=== PATIENT | female | born 1950 | race Caucasian/White ===

== ENCOUNTER 2017-01-22 19:28 | Observation (INO) | payer OTHER ==
--- NOTE | 2017-01-22 19:41 | CPEKG ---
Heart Rate: 98 RR Interval: 612 P-R Interval: 160 QRSD Interval: 100 QT Interval: 408 QTC Interval: 522 P [place]: 60 QRS [place]: -62 T Wave [place]: 95 EKG Severity - ABNORMAL ECG - EKG Impression: SINUS RHYTHM EKG Impression: LEFT ATRIAL ABNORMALITY EKG Impression: LEFT ANTERIOR FASCICULAR BLOCK EKG Impression: CONSIDER RIGHT VENTRICULAR HYPERTROPHY EKG Impression: LEFT VENTRICULAR HYPERTROPHY EKG Impression: ABNORMAL T, CONSIDER ISCHEMIA, ANT-LAT LEADS EKG Impression: PROLONGED QT INTERVAL Electronically Signed By: Kecia Amato 22-Jan-2017 22:38:22
--- NOTE | 2017-01-22 19:42 | EDPHY ---
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 She presents today with chest pressure starting at 7:00 p.m.. She took 2 adult aspirin at home. She states her symptoms have now resolved. She denies shortness of breath, nausea, vomiting or diaphoresis. She had an episode of chest pressure yesterday as well. She has not seen Dr. Cobb for some time. She denies any leg pain or swelling. REVIEW OF SYSTEMS: My complete review of systems is negative except as mentioned in the HPI. 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 She does not smoke. Smoking Status: Never smoked Physical Exam: Vitals noted GENERAL: Well-appearing, in no acute distress, alert. HEENT: Eyes normal to inspection, normal pharynx, no signs of dehydration. NECK: No thyromegaly, no lymphadenopathy, supple. RESPIRATORY: Clear to auscultation bilaterally, no rales, rhonchi or wheezing. CVS: Regular rate and rhythm. No rubs, or gallops. ABDOMEN: Soft, nontender, nondistended, no organomegaly. BACK: Normal to inspection, no CVA tenderness. SKIN: Normal color, no rash, warm, dry. No pallor. EXTREMITIES: No pedal edema, no calf tenderness, no Homans sign or cords, no joint swelling. NEURO/PSYCH: Alert and oriented, normal mood and affect, normal motor sensory exam. Constitutional: Initial Vital Signs Temperature (C) 37.8 C 01/22/17 19:36 Heart Rate 93 01/22/17 19:36 Respiratory Rate 16 01/22/17 19:36 Blood Pressure 133/77 H 01/22/17 19:36 O2 Sat (%) 90 L 01/22/17 19:36 O2 Delivery Mode Room Air O2 (L/minute) 2 Allergies/Adverse Reactions: Opioids - Morphine Analogues Allergy (Verified 01/22/17 19:35) GENERIC PROZAC Allergy (Severe, Uncoded 07/16/10 08:55) SYNCOPE Home Medications: Medication Instructions Recorded Depakote 07/16/10 PROzac 07/16/10 Atorvastatin Calcium [Lipitor] 0 mg PO DAILY 12/01/11 Calcium Carbonate [Antacid] 0 mg PO 12/01/11 Medical Decision Making - Diagnostics Imaging Results: Imaging Impressions Chest X-Ray 01/22/17 19:53 Impression: The chest is negative for acute cardiopulmonary abnormality. ED Course/Re-evaluation: In the emergency department I met EMS on arrival. I took report from the hobbing machine operator. She reported ST elevation inferiorly. An EKG, laboratory studies, and chest x-ray were ordered. EKG: Sinus rhythm at 98. Left atrial abnormality. Left anterior fascicular block. Right ventricular hypertrophy. Left ventricular hypertrophy. Patient has flipped T-waves in V1 through V3. No ST elevation. This compared the previous EKG from 02/25/2014. It is noted that there is a flipped T-wave in V3 today and there was no flipped T-wave in V3 previously. 1950: Dr. Isai Taylor was in the emergency department evaluating the patient. 2039: I discussed case with Dr. Taylor. He will admit the patient for observation. Patient is aware the plan. Differential Diagnosis: My differential includes but is not limited to ACS, acute PA, dissection, aneurysm, pulmonary embolus, pneumonia, pneumothorax, reflux, GERD - Data Points Laboratory Results: Laboratory Results 01/22/17 19:30 01/22/17 19:30 01/22/17 01/22/17 01/22/17 19:30 19:30 19:30 WBC 9.39 10^3/uL 10^3/uL (3.80-9.50) RBC 4.50 10^6/uL 10^6/uL (4.18-5.33) Hgb 14.8 g/dL g/dL (12.6-16.3) Hct 44.0 % % (38.0-47.0) MCV 97.8 fL fL (81.5-99.8) MCH 32.9 pg pg (27.9-34.1) MCHC 33.6 g/dL g/dL (32.4-36.7) RDW 12.8 % % (11.5-15.2) Plt Count 197 10^3/uL 10^3/uL (150-400) MPV 11.5 fL fL (8.7-11.7) Neut % (Auto) 53.3 % % (39.3-74.2) Lymph % (Auto) 35.9 % % (15.0-45.0) [place] % (Auto) 7.3 % % (4.5-13.0) Eos % (Auto) 2.0 % % (0.6-7.6) Baso % (Auto) 0.9 % % (0.3-1.7) Nucleat RBC Rel Count 0.0 % % (0.0-0.2) Absolute Neuts (auto) 5.00 10^3/uL 10^3/uL (1.70-6.50) Absolute Lymphs (auto) 3.37 10^3/uL H 10^3/uL (1.00-3.00) Absolute Monos (auto) 0.69 10^3/uL 10^3/uL (0.30-0.80) Absolute Eos (auto) 0.19 10^3/uL 10^3/uL (0.03-0.40) Absolute Basos (auto) 0.08 10^3/uL 10^3/uL (0.02-0.10) Absolute Nucleated RBC 0.00 10^3/uL 10^3/uL (0-0.01) Immature Gran % 0.6 % % (0.0-1.1) Immature Gran # 0.06 10^3/uL 10^3/uL (0.00-0.10) PT 12.1 SEC SEC (12.0-15.0) INR 0.91 (0.83-1.16) APTT 29.3 SEC SEC (23.0-38.0) Sodium 141 mEq/L mEq/L (134-144) Potassium 4.1 mEq/L mEq/L (3.5-5.2) Chloride 104 mEq/L mEq/L (97-110) Carbon Dioxide 23 mEq/l mEq/l (22-31) Anion Gap 14 mEq/L mEq/L (8-16) BUN 10 mg/dL mg/dL (7-23) Creatinine 0.7 mg/dL mg/dL (0.6-1.0) Estimated GFR > 60 Glucose 115 mg/dL H mg/dL (70-100) Calcium 9.4 mg/dL mg/dL (8.5-10.4) Total Bilirubin 0.5 mg/dL mg/dL (0.1-1.4) Conjugated Bilirubin 0.4 mg/dL mg/dL (0.0-0.5) Unconjugated Bilirubin 0.1 mg/dL mg/dL (0.0-1.1) AST 98 IU/L H IU/L (14-46) ALT 101 IU/L H IU/L (9-52) Alkaline Phosphatase 122 IU/L IU/L (38-126) Troponin I 0.018 ng/mL ng/mL (0-0.034) NT-Pro-B Natriuret Pep 672 pg/mL H pg/mL (0-125) Total Protein 7.4 g/dL g/dL (6.3-8.2) Albumin 4.2 g/dL g/dL (3.5-5.0) Lipase 188.0 IU/L IU/L (23-300) Departure - Departure Disposition: [facility] Inpatient Acute Clinical Impression: Chest pain Qualifiers: Chest pain type: other chest pain Qualified Code(s): R07.89 - Other chest pain Condition: Good
[2017-01-22] MEDS ORDERED: IOPAMIDOL (ISOVUE-370) 150 ML BTL IV ONE (19:45)
[2017-01-22] MEDS ORDERED: LIDOCAINE 1% 30 ML SDV ONE ×2 (19:45→20:03)
[2017-01-22] MEDS ORDERED: fentaNYL 100 MCG/2 ML INJ ONE (19:45)
[2017-01-22] MEDS ORDERED: MIDAZOLAM 2 MG/2 ML VIAL ONE (19:45)
[2017-01-22 19:51] LABS: % IMMATURE GRANULYOCYTES 0.6 % (0.0-1.1); ABSOLUTE IMMATURE GRANULOCYTES 0.06 10^3/uL (0.00-0.10); ADD DIFF? NO; ADD MORPH? NO; ADD SCAN? NO; ATYPICAL LYMPHOCYTE FLAG 0 (0-99); FRAGMENT RBC FLAG 0 (0-99); HEMOGLOBIN 14.8 g/dL (12.6-16.3); LEFT SHIFT FLG 0 (0-99); LIPEMIA HEMOLYSIS FLAG 80 (0-99); MEAN CELL HEMOGLOBIN 32.9 pg (27.9-34.1); MEAN CELL HEMOGLOBIN CONCENTR. 33.6 g/dL (32.4-36.7); MEAN CELL VOLUME 97.8 fL (81.5-99.8); MEAN PLATELET VOLUME 11.5 fL (8.7-11.7); PLATELET CLUMPS FLAG 0 (0-99); PLATELET COUNT 197 10^3/uL (150-400); RED CELL DISTRIBUTION WIDTH 12.8 % (11.5-15.2)
[2017-01-22 19:56] LABS: INR 0.91 (0.83-1.16); PROTIME(PATIENT) 12.1 SEC (12.0-15.0)
[2017-01-22 19:57] LABS: APTT 29.3 SEC (23.0-38.0)
[2017-01-22 20:08] LABS: ALANINE AMINOTRANSFERASE 101 IU/L (9-52); ALBUMIN 4.2 g/dL (3.5-5.0); ALKALINE PHOSPHATASE 122 IU/L (38-126); ANION GAP 14 mEq/L (8-16); ASPARTATE AMINOTRANSFERASE 98 IU/L (14-46); BILIRUBIN,TOTAL 0.5 mg/dL (0.1-1.4); BILIRUBIN-CONJUGATED 0.4 mg/dL (0.0-0.5); BILIRUBIN-UNCONJUGATED 0.1 mg/dL (0.0-1.1); CALCIUM 9.4 mg/dL (8.5-10.4); CARBON DIOXIDE 23 mEq/l (22-31); CHLORIDE 104 mEq/L (97-110); CREATININE 0.7 mg/dL (0.6-1.0); GLOMERULAR FILTRATION RATE > 60; GLUCOSE 115 mg/dL (70-100); POTASSIUM 4.1 mEq/L (3.5-5.2); SODIUM 141 mEq/L (134-144); TOTAL PROTEIN 7.4 g/dL (6.3-8.2)
[2017-01-22 20:19] LABS: TROPONIN I 0.018 ng/mL (0-0.034)
--- NOTE | 2017-01-22 20:29 | PDCONSULT ---
Developmental Services Worker Note: Chief complaint: Chest pain History of present illness: Ms Garcia is a 66-year-old female with known dual chamber right ventricle admitted with a 2 day history of intermittent substernal chest pressure associated with dizziness. Patient had a extensive cardiac workup in 2006 including a transesophageal echocardiogram as well as a cardiac catheterization. Those reports are not available. She does not recall having been told that she has coronary artery disease. Risk factors include hyperlipidemia. Patient has had a very stressful week related to the opening of a play. Patient also was having discussions with her daughter. Yesterday she experienced the onset of substernal chest pressure. It was associated with dizziness. It did not radiate to the jaw or arm. Was not associated nausea vomiting or diaphoresis. The symptoms resolved. They occurred again today. She activated 911 and was brought to the emergency department. Cardiac alert was initiated. On my arrival to the ER patient is currently pain-free. Cardiac risk includes hyperlipidemia. Past cardiac history includes ventricular septal defect and dual right ventricular chamber. Past medical history includes hypothyroidism, depression. Allergies GENERIC PROZAC Allergy (Severe, Uncoded 07/16/10 08:55) SYNCOPE Opioids - Morphine Analogues Allergy (Verified 01/22/17 19:35) Ambulatory Orders Depakote 07/16/10 PROzac 07/16/10 Atorvastatin Calcium [Lipitor 10 mg (*)] 0 mg PO DAILY 12/01/11 Calcium Carbonate [Antacid] 0 mg PO 12/01/11 Past surgical history: Unremarkable. Social history: She is a nonsmoker. She does report drink alcohol regularly. She is accompanied by her who I know well and her daughter. Family history: Negative for premature coronary artery disease. Review of System: HEENT: Patient is free of sore throat. She has had no headache. She has had no change in vision. Neck: Patient has had no sore throat. Chest: Patient is free of shortness of breath, wheezing. Cardiac: Patient is free of exertional shortness of breath, PND, orthopnea, palpitations, syncope, near syncope. GI: Patient is free of nausea vomiting. She has had no abdominal pain diarrhea or constipation. : Patient is free of dysuria/nocturia. Skin: Patient is free of rash. Neuro: Patient is had some dizziness. She does not describe vertigo. She has had no change in sensation or motor function or gait. Physical examination Selected Entries 01/22/17 19:36 Heart Rate 93 Respiratory 16 Rate O2 Sat (%) 90 L Temperature (C) 37.8 C Blood Pressure 133/77 H Mean Arterial 95 Pressure (MAP) well-nourished well-developed female resting flat in bed. Conjunctivae all injection is noted without scleral icterus. Cataract repair is seen in the left eye. Oropharynx is clear without exudate. Neck is supple without masses. There is no thyromegaly. There are no carotid bruits. Chest is clear to auscultation percussion. Cardiac examination is notable for no RV lift. There is a regular rate and rhythm with a 3/6 systolic murmur along the left sternal border. Apical impulse is in the normal position. Abdomen Is soft nontender with good bowel sounds. There is no organomegaly. There is no suprapubic tenderness. Radial pulses are +2 and equal, femoral pulses are +2 and equal, dorsalis pedis pulses are +2 and equal Skin reveals no rash. Neurologically she is alert and oriented with no mood and affect. She is moving extremities well sensation grossly intact. Speech is normal. Face is symmetric. Data: Echocardiogram from 2009 revealed normal LV systolic function with a ventricular septal defect. Dual right ventricular cavity was noted. Coronary angiogram and DULCE from 2006 are not available. EKG today shows left axis deviation with sinus rhythm and evidence of right ventricular hypertrophy. Is unchanged from prior EKG. Laboratory Tests 01/22/17 01/22/17 01/22/17 19:30 19:30 19:30 WBC 9.39 RBC 4.50 Hgb 14.8 Hct 44.0 MCV 97.8 MCH 32.9 MCHC 33.6 RDW 12.8 Plt Count 197 PT 12.1 INR 0.91 APTT 29.3 Sodium 141 Potassium 4.1 Chloride 104 Carbon Dioxide 23 Anion Gap 14 BUN 10 Creatinine 0.7 Glucose 115 H Calcium 9.4 Total Bilirubin 0.5 Conjugated Bilirubin 0.4 Unconjugated Bilirubin 0.1 AST 98 H ALT 101 H Alkaline Phosphatase 122 Troponin I 0.018 NT-Pro-B Natriuret Pep 672 H Total Protein 7.4 Albumin 4.2 Lipase 188.0 Impression: 66-year-old female admitted with atypical chest pain. Initial troponin is negative for acute ischemia. EKG does not show acute injury pattern. Clinical history is more consistent with GI etiology with pressure. Dizziness is of uncertain etiology. Patient had a similar response to a change in her Depakote and Prozac dosages in the past and this may be responsible today. Patient does have a mild elevation in liver function tests of uncertain etiology. We will plan to admitted to the hospital to rule out for myocardial infarction. Plan for an echocardiogram to reassess right ventricular function in the setting of ventricular septal defect. We will repeat liver function tests in the morning. This may represent drug toxicity. At the present time she is clinically stable without indications to go to the cardiac catheterization lab. Will review her angiogram from 2006 and consider risk stratification if need be. Will addressed patient's recent increase in stress / anxiety. Questions were answered with the patient and her family. We will follow her serially overnight.
--- NOTE | 2017-01-22 20:50 | CPEKG ---
Heart Rate: 91 RR Interval: 659 P-R Interval: 156 QRSD Interval: 98 QT Interval: 428 QTC Interval: 527 P [place]: 59 QRS [place]: -63 T Wave [place]: 90 EKG Severity - ABNORMAL ECG - EKG Impression: SINUS RHYTHM EKG Impression: PROBABLE LEFT ATRIAL ABNORMALITY EKG Impression: LEFT ANTERIOR FASCICULAR BLOCK EKG Impression: LATERAL INFARCT, AGE INDETERMINATE EKG Impression: PROLONGED QT INTERVAL Electronically Signed By: Kecia Amato 22-Jan-2017 22:38:22
[2017-01-22 21:28] LABS: CREATINE KINASE-MB FRACTION 1.87 ng/mL (0-3.19); TROPONIN I 0.021 ng/mL (0-0.034)
[2017-01-23 00:18] LABS: CREATINE KINASE-MB FRACTION 1.75 ng/mL (0-3.19); TROPONIN I 0.022 ng/mL (0-0.034)
[2017-01-23 02:47] LABS: CREATINE KINASE-MB FRACTION 1.28 ng/mL (0-3.19); TROPONIN I 0.025 ng/mL (0-0.034)
[2017-01-23 06:11] LABS: % IMMATURE GRANULYOCYTES 0.5 % (0.0-1.1); ABSOLUTE IMMATURE GRANULOCYTES 0.03 10^3/uL (0.00-0.10); ADD DIFF? NO; ADD MORPH? NO; ADD SCAN? NO; ATYPICAL LYMPHOCYTE FLAG 0 (0-99); FRAGMENT RBC FLAG 0 (0-99); HEMATOCRIT 39.7 % (38.0-47.0); HEMOGLOBIN 13.3 g/dL (12.6-16.3); LEFT SHIFT FLG 0 (0-99); LIPEMIA HEMOLYSIS FLAG 80 (0-99); MEAN CELL HEMOGLOBIN 32.7 pg (27.9-34.1); MEAN CELL HEMOGLOBIN CONCENTR. 33.5 g/dL (32.4-36.7); MEAN CELL VOLUME 97.5 fL (81.5-99.8); MEAN PLATELET VOLUME 10.9 fL (8.7-11.7); PLATELET CLUMPS FLAG 10 (0-99); PLATELET COUNT 151 10^3/uL (150-400); RED BLOOD CELL COUNT 4.07 10^6/uL (4.18-5.33); RED CELL DISTRIBUTION WIDTH 12.9 % (11.5-15.2)
[2017-01-23 06:37] LABS: ALANINE AMINOTRANSFERASE 84 IU/L (9-52); ALBUMIN 3.6 g/dL (3.5-5.0); ALKALINE PHOSPHATASE 83 IU/L (38-126); ANION GAP 9 mEq/L (8-16); ASPARTATE AMINOTRANSFERASE 74 IU/L (14-46); BILIRUBIN,TOTAL 0.5 mg/dL (0.1-1.4); BILIRUBIN-CONJUGATED 0.3 mg/dL (0.0-0.5); BILIRUBIN-UNCONJUGATED 0.2 mg/dL (0.0-1.1); CALCIUM 8.6 mg/dL (8.5-10.4); CARBON DIOXIDE 24 mEq/l (22-31); CHLORIDE 110 mEq/L (97-110); CHOLESTEROL 173 mg/dL (140-220); CHOLESTEROL/HDL RATIO 2.31 RATIO (1.00-4.44); CREATININE 0.6 mg/dL (0.6-1.0); GLOMERULAR FILTRATION RATE > 60; GLUCOSE 76 mg/dL (70-100); HIGH DENSITY LIPOPROTEIN 75 mg/dL (40-85); LDL/HDL RATIO 1.03 RATIO (1.00-3.22); LOW DENSITY LIPOPROTEIN 77 mg/dL (80-100); NON-HIGH DENSITY LIPOPROTEIN 98 mg/dL (90-129); POTASSIUM 4.2 mEq/L (3.5-5.2); SODIUM 143 mEq/L (134-144); TOTAL PROTEIN 6.4 g/dL (6.3-8.2); TRIGLYCERIDE 107 mg/dL (35-135); VERY LOW DENSITY LIPOPROTEINS 21 mg/dL (8-25)
[2017-01-23 06:49] LABS: CREATINE KINASE-MB FRACTION 1.44 ng/mL (0-3.19); TROPONIN I 0.022 ng/mL (0-0.034)
--- NOTE | 2017-01-23 08:57 | GDS ---
[f rep st] DISCHARGE SUMMARY ADMISSION DIAGNOSIS: Atypical chest pain. DISCHARGE DIAGNOSES: 1. Atypical chest pain, query medicine reaction. 2. Dual-chamber right ventricle. 3. Hypothyroidism. DISCHARGE MEDICATIONS: Per attached reconciliation sheet. FOLLOWUP: 1. Follow up with Dr. Rafaela Rosas, primary care, in 1 week for followup on liver function tests and dosage of Prozac and Depakote. 2. Follow up with Dr. Suhail Cobb, cardiology, for progression of infundibular stenosis. PROCEDURES DONE DURING THIS HOSPITALIZATION: Echocardiogram. HOSPITAL COURSE: The patient is a 66-year-old female who was admitted to the hospital with 2 episod es of atypical chest pain associated with dizziness. Patient was ruled out for myocardial infarctio n by serial enzymes. Her brain natriuretic peptide was mildly elevated. An echocardiogram shows pr ogression of septal hypertrophy with suggestion of infundibular stenosis. Her liver function tests were also noted to be elevated. These decreased by the 1st hospital day. The patient had a recent increased and change in dose of Depakote and Prozac. She had a similar reaction with discomfort and dizziness related to fillers related to these medications. On the day of discharge, she was up amb ulating without limitations. PHYSICAL EXAMINATION: VITAL SIGNS: Blood pressure of 106/68 and her heart rate is 72. Her oxygen saturation is 93 with a rate of 18. She is saturating well on room air. Temperature is 36.6. NECK : She has no JVP at 90 degrees. CHEST: Clear. CARDIAC: Continues to reveal a 3/6 systolic murmu r along the sternal border. ABDOMEN: Soft. There is no hepatomegaly. EXTREMITIES: Free of edema . LABORATORY DATA: Today, a white count of 6.12. Her hemoglobin is 13.3 with a hematocrit of 39.7. Her serum sodium is 143 with a potassium of 4.2. Her creatinine is 0.6. Her AST on admission was 9 8, today it is 74. ALT was 101, today it is 84. Her troponins are flat at 0.021. Her CPK MB is ne gative. Her LDL cholesterol is 77. Her TSH is normal at 3.26. Her lipase is 188. IMPRESSION: 1. Atypical chest discomfort associated with dizziness, query medicine side effect. 2. Double-chamber right ventricle associated with ventricular septal defect and infundibular narrow ing. 3. Hypothyroidism, adequately replaced. 4. Elevated liver function tests, query medication-related. Improving. RECOMMENDATIONS: Clinical followup for her elevated liver function tests and dosing of Depakote and Prozac. We will have her follow up with cardiology, Dr. Cobb, with consideration for a VO2 Max t readmill to determine limitations with consideration for a cardiac MR at some point to delineate the anatomy and consider her for further evaluation/intervention if necessary. At the present time, dustin sue is clinically stable. There is no evidence of an acute coronary syndrome. She had a normal coron benedict angiography in 2006, which I reviewed. Questions were answered. She is discharged home in stab le condition. Followup as outlined above. /[id number]/MODL
[2017-01-23] MEDS ORDERED: ASPIRIN 81 MG CHEWABLE TAB PO SCH (09:00)
[2017-01-23 09:07] VITALS: BP 133/75; PULSE 77; RESP 16; TEMP 98.4; O2SAT 94
--- NOTE | 2017-01-23 09:36 | ECHO ---
[id number] + + [id number] : : [place] [address] : : [phone] + + Adult Echocardiographic Report + ----+ :Name: ROBERTO PULIDO GIOVANNYkaveh Date: 01/23/2017 07:58 AM BP: 106/68 mmHg : : Hospital Admission Number: [id number] Location: 208: :: 1950 Gender: Female Height: 61 in : :Age: 66 yrs Race: WH Weight: 128 lb : :Reason For Study: ancelmo pain : : BSA: 1.6 meters2 : :History: double right ventricular chamber and VSD : + ----+ MMode/2D Measurements \T\ Calculations IVSd: 1.8 cm LVIDd: 3.7 cm FS: 35.3 % Ao root diam: LVPWd: 0.59 cm LVIDs: 2.4 cm EDV(Teich): 2.8 cm 56.5 ml LA dimension: ESV(Teich): 3.3 cm 19.4 ml EF(Teich): 65.6 % LVLd ap4: 6.6 cm SV(MOD-sp4): EDV(MOD-sp4): 49.0 ml 71.0 ml LVLs ap4: 5.8 cm ESV(MOD-sp4): 22.0 ml EF(MOD-sp4): 69.0 % Normal Measurement Values: + + :LVIDd (3.5-5.7cm) IVSd (0.6-1.1cm) LVPWd (0.6-1.1cm) Aortic Root (2.0-3.7cm)Left Atrium (1.5-4.0cm): :LV Vol(d) (76-115ml) LV Vol(s) (29-48ml) Ejec Fraction (50-65%)PV Marco (0.6- 1.2m/s) TV Marco (0.4-1.0m/s) : :MV E Marco (0.8-1.0m/s)MV A Marco (0.3-1.0m/s)LVOT Marco (0.7-1.2m/s) Asc Ao Marco ( 0.9-1.8m/s) : + + Doppler Measurements \T\ Calculations MV E max marco: Ao V2 max: LV V1 max: PA V2 max: 60.9 cm/sec 115.1 cm/sec 85.3 cm/sec 97.7 cm/sec MV A max marco: Ao max P.3 mmHg LV V1 max PG: PA max P.8 cm/sec 2.9 mmHg 3.8 mmHg MV E/A: 1.2 MV dec time: 0.17 sec Left Ventricle The left ventricle is normal in size and function. Questionable VSD. Severe thickening of the interventricular septum with no left ventricular outflow tract obstruction. Ejection Fraction = 65%. No regional wall motion abnormalities noted. Right Ventricle It is difficult to distinguish between infundibular sub-pulmonic stenosis and double right ventricular chamber. There is a narrowing in what appears to be the right ventricular outflow tract; this infundibular narrowing may be dividing the RV into two chambers or may just be a narrowing. The gradient across this muscular narrowing is 47mmHg. The right ventricle is normal size. There is mild right ventricular hypertrophy. The right ventricular systolic function is normal. Atria The left atrial size is normal. Right atrial size is normal. Mitral Valve There is borderline mitral valve prolapse. There is no mitral valve stenosis. There is mild mitral regurgitation. Tricuspid Valve The tricuspid valve is normal in structure and function. There is no tricuspid stenosis. No tricuspid regurgitation. Aortic Valve The aortic valve is not well visualized. There is no aortic stenosis. There is no aortic insufficiency. Pulmonic Valve The pulmonic valve is not well visualized. Great Vessels The aortic root is normal size. Pericardium/Pleural trivial pericardial effusion. Conclusion A two-dimensional transthoracic echocardiogram with M-mode and Doppler was performed. The left ventricle is normal in size and function. Ejection Fraction = 65%. Severe thickening of the interventricular septum with no left ventricular outflow tract obstruction. Subpulmonic infundibular stenosis. with gradient of 47mmHg. There is borderline mitral valve prolapse. There is mild mitral regurgitation. The aortic valve is not well visualized. trivial pericardial effusion. Final Reading Physician: Hollie Jacinto signed on 01/23/2017 09:35 AM Ordering Physician: NORMA SIMON Performed By: Augustina Montemayor
[2017-01-23 10:08] LABS: HEMOGLOBIN A1C 5.6 % (4.0-6.0)
== END 2017-01-23 09:54 | disposition home or self-care (01) ==
LOC: EDUNIT# → F2W 21:10
PROVIDERS: ADMIT Internal Medicine Interventional Cardiology; ATTEND Internal Medicine Interventional Cardiology
DX: R07.89 Other chest pain (principal); R42 Dizziness and giddiness; E03.9 Hypothyroidism, unspecified; I10 Essential (primary) hypertension; Q24.8 Other specified congenital malformations of heart
CPT/HCPCS: 71010; 93005; 93306; G0378; J1644; J2250; J3010; Q9967

== ENCOUNTER → 2017-01-31 | Outpatient (CLI) | payer OTHER | LOC: BHFA 11:30 | PROVIDERS: ATTEND Internal Medicine Cardiovascular Disease | DX: Q21.0 Ventricular septal defect (principal); I51.7 Cardiomegaly; E78.5 Hyperlipidemia, unspecified ==

== ENCOUNTER 2017-03-13 08:48 | Day surgery (SDC) | payer OTHER ==
[2017-03-13] MEDS ORDERED: fentaNYL 100 MCG/2 ML INJ IVP ONE ×2 (08:54→09:06)
[2017-03-13] MEDS ORDERED: BENZOCAINE UNIT DOSE SPRAY HURRICAINE MM ONE (08:54)
[2017-03-13] MEDS ORDERED: MIDAZOLAM 2 MG/2 ML VIAL IVP ONE ×2 (08:54→09:06)
[2017-03-13] MEDS ORDERED: NS 500 ML IV ONE (08:54)
[2017-03-13] MEDS ORDERED: ETOMIDATE 20 MG/10 ML VIAL IVP ONE (08:54)
[2017-03-13] MEDS ORDERED: PROPOFOL 200 MG/20 ML VIAL IVP ONE (08:54)
[2017-03-13] MEDS ORDERED: NS 1,000 ML IV ONE ×2 (09:06→09:16)
[2017-03-13] MEDS ORDERED: diphenhydrAMINE 25 MG CAP PO ONE (09:16)
[2017-03-13] MEDS ORDERED: FAMOTIDINE 20 MG TAB PO ONE (09:16)
[2017-03-13] MEDS ORDERED: ASPIRIN EC 325 MG TAB PO ONE (09:16)
[2017-03-13] MEDS ORDERED: DIAZEPAM 5 MG TAB PO ONE (09:16)
--- NOTE | 2017-03-13 09:23 | CPEKG ---
Heart Rate: 79 RR Interval: 759 P-R Interval: 152 QRSD Interval: 98 QT Interval: 452 QTC Interval: 519 P [place]: 65 QRS [place]: -53 T Wave [place]: 93 EKG Severity - ABNORMAL ECG - EKG Impression: SINUS RHYTHM EKG Impression: LEFT ANTERIOR FASCICULAR BLOCK EKG Impression: CONSIDER RIGHT VENTRICULAR HYPERTROPHY EKG Impression: LEFT VENTRICULAR HYPERTROPHY EKG Impression: ABNORMAL T, CONSIDER ISCHEMIA, ANT-LAT LEADS EKG Impression: PROLONGED QT INTERVAL EKG Impression: No considerable change from EKG 01/22/2017 Electronically Signed By: Isai Taylor 13-Mar-2017 10:34:23
[2017-03-13 09:36] LABS: % IMMATURE GRANULYOCYTES 0.5 % (0.0-1.1); ABSOLUTE IMMATURE GRANULOCYTES 0.03 10^3/uL (0.00-0.10); ADD DIFF? NO; ADD MORPH? NO; ADD SCAN? NO; ATYPICAL LYMPHOCYTE FLAG 10 (0-99); FRAGMENT RBC FLAG 0 (0-99); HEMATOCRIT 40.8 % (38.0-47.0); HEMOGLOBIN 13.8 g/dL (12.6-16.3); LEFT SHIFT FLG 0 (0-99); LIPEMIA HEMOLYSIS FLAG 90 (0-99); MEAN CELL HEMOGLOBIN 33.2 pg (27.9-34.1); MEAN CELL HEMOGLOBIN CONCENTR. 33.8 g/dL (32.4-36.7); MEAN CELL VOLUME 98.1 fL (81.5-99.8); MEAN PLATELET VOLUME 11.3 fL (8.7-11.7); PLATELET CLUMPS FLAG 0 (0-99); PLATELET COUNT 182 10^3/uL (150-400); RED BLOOD CELL COUNT 4.16 10^6/uL (4.18-5.33); RED CELL DISTRIBUTION WIDTH 12.8 % (11.5-15.2)
[2017-03-13 09:37] LABS: INR 0.97 (0.83-1.16); PROTIME(PATIENT) 12.8 SEC (12.0-15.0)
[2017-03-13] MEDS ORDERED: ATROPINE SULFATE 1 MG/10 ML SYR ONE (09:40)
[2017-03-13 09:48] LABS: ANION GAP 12 mEq/L (8-16); CARBON DIOXIDE 21 mEq/l (22-31); CHLORIDE 107 mEq/L (97-110); CHOLESTEROL 188 mg/dL (140-220); CHOLESTEROL/HDL RATIO 2.04 RATIO (1.00-4.44); CREATININE 0.6 mg/dL (0.6-1.0); GLOMERULAR FILTRATION RATE > 60; GLUCOSE 72 mg/dL (70-100); HIGH DENSITY LIPOPROTEIN 92 mg/dL (40-85); LOW DENSITY LIPOPROTEIN 74 mg/dL (80-100); NON-HIGH DENSITY LIPOPROTEIN 96 mg/dL (90-129); POTASSIUM 4.5 mEq/L (3.5-5.2); SODIUM 140 mEq/L (134-144); TRIGLYCERIDE 113 mg/dL (35-135); VERY LOW DENSITY LIPOPROTEINS 22 mg/dL (8-25)
[2017-03-13] MEDS ORDERED: ETOMIDATE 40 MG/20 ML INJ ONE (10:00)
[2017-03-13] MEDS ORDERED: fentaNYL 100 MCG/2 ML INJ ONE (10:35)
[2017-03-13] MEDS ORDERED: LIDOCAINE 1% 300 MG/30 ML SDV ONE (10:35)
[2017-03-13] MEDS ORDERED: MIDAZOLAM 2 MG/2 ML VIAL ONE (10:36)
[2017-03-13] MEDS ORDERED: IOPAMIDOL (ISOVUE-370) 150 ML BTL IV ONE (10:36)
--- NOTE | 2017-03-13 11:34 | PDDXCAT ---
Diagnostic Cath Note - . Date: 03/13/17 Intervention: none *Procedure 1. Selective coronary angiography 2. Left heart catheterization 3. Right heart catheterization Indication: Pulmonary hypertension and unstable angina CCS class IV. Access: Right groin *Materials Left Heart Cath size: 6F Left Heart Cath materials: Juan A Right, Thony Pigtail, *Findings LM: The LM is ~mm in size and it bifurcates into LAD: The LAD is ~ mm in size LCX: The circumflex is ~3.25 mm in size with HUEY III flow throughout. There is LV: 142/11/25 AO: 129/69/95 EF: 65% RV: 77/20 RA: RCA: The RCA is ~2.5 mm in size *Summary Estimated Blood Loss: 1. Patient Problems: Problems Problem Status Onset Chest pain Acute
== END 2017-03-13 16:48 | disposition home or self-care (01) ==
LOC: FCATH 08:48
PROVIDERS: ATTEND Internal Medicine Cardiovascular Disease
PROC: B2151ZZ Fluoroscopy of Left Heart using Low Osmolar Contrast (ICD-10-PCS; principal; 2017-03-13)
PROC: 4A023N8 Measurement of Cardiac Sampling and Pressure, Bilateral, Percutaneous Approach (ICD-10-PCS; principal; 2017-03-13)
PROC: B2111ZZ Fluoroscopy of Multiple Coronary Arteries using Low Osmolar Contrast (ICD-10-PCS; principal; 2017-03-13)
DX: I51.7 Cardiomegaly (principal); I27.2 Other secondary pulmonary hypertension
CPT/HCPCS: C1760; J0461; J1644; J2250; J3010; Q9967

== ENCOUNTER 2017-06-25 19:29 | Emergency (ER) | payer OTHER ==
[2017-06-25 19:37] VITALS: BP 116/76; TEMP 98.6
--- NOTE | 2017-06-25 20:07 | EDPHY ---
H & P Time Seen by Provider: 06/25/17 19:50 HPI/ROS: CHIEF COMPLAINT: Right hand pain HISTORY OF PRESENT ILLNESS: The patient is a 66 y/o female who complains of worsening right hand pain. She developed a FB sensation in the right hand a few weeks ago. She pulled out a wood fragment as well as a metallic object previously. Two days ago, she saw Dr. Slater, and he thought there was a foreign still in her right hand. She is scheduled to have an MRI tomorrow. She is currently having pain up and down her right hand/arm that radiates into her back, but is concentrated in her right hand. She notes the pain has progressed from being dull to sharp. Ibuprofen and heat packs do not provide pain relief. No neck pain, weakness, numbness, fever or other pertinent symptoms. REVIEW OF SYSTEMS: Aside from elements discussed in the HPI, a comprehensive 10-point review of systems was reviewed and is negative. Past Medical/Surgical History: Migraines, closed head injury, depression, appendectomy Social History: Daughter at bedside, works for [employer], lives in [place] Smoking Status: Never smoked Physical Exam: General Appearance: Alert, no distress Eyes: Pupils equal and round, no conjunctival pallor or injection ENT, Mouth: Mucous membranes moist Neck: Normal inspection Respiratory: Lungs are clear to auscultation Cardiovascular: Regular rate and rhythm Gastrointestinal: Abdomen is soft and non- tender Neurological: A&O, nonfocal, normal gait Skin: Warm and dry, no rash Extremities: Tiny erythemic area with tenderness over right thenar eminence. Otherwise nontender, no pedal edema Psychiatric: Mood and affect normal Constitutional: Initial Vital Signs Temperature (C) 37 C 06/25/17 19:34 Heart Rate 93 06/25/17 19:34 Respiratory Rate 20 06/25/17 19:34 Blood Pressure 116/76 06/25/17 19:34 O2 Sat (%) 96 06/25/17 19:34 O2 Delivery Mode Room Air Allergies/Adverse Reactions: fluoxetine Allergy (Intermediate, Verified 06/25/17 19:34) Other-Enter Comments Opioids - Morphine Analogues Allergy (Mild, Verified 06/25/17 19:34) Vomiting Home Medications: Medication Instructions Recorded Calcium Carbonate [Oyster Shell 500 mg PO DAILY 01/22/17 Calcium 500 mg (*)] DIVALPROEX SODIUM [DIVALPROEX 125 mg PO DAILY 01/22/17 SODIUM] Fluoxetine HCl [Fluoxetine HCl] 20 mg PO SUTUTHSA 01/22/17 Fluoxetine HCl [Fluoxetine HCl] 40 mg PO MOWEFR 01/22/17 Ibuprofen [Motrin (*)] 600 mg PO PRN PRN 01/22/17 [place]-3 Fatty Acids [Fish Oil 1000 1,000 mg PO DAILY 01/22/17 mg (*)] Atorvastatin Calcium [Lipitor 20 20 mg PO HS 01/23/17 mg (*)] Levothyroxine [Synthroid 25 mcg 12.5 mcg PO DAILY06 01/23/17 (*)] Divalproex Sodium 250 mg PO HS 03/13/17 Cephalexin [Keflex (*)] 500 mg PO QID #40 cap 06/25/17 Medical Decision Making Procedures: Procedure: Foreign body removal. The right palm was sterilely prepped. 1% lidocaine locally. A tiny incision was made over the area of point tenderness. There was no foreign body or drainage. The procedure was performed manually, with dissection under local anesthesia. The procedure was performed by myself, Dr. Nesbitt. ED Course/Re-evaluation: The patient is a 66 y/o female who presents with a tiny area fof erythema with tenderness over her right thenar eminence. She believes there is a foreign object in her right hand causing pain that radiates up her right arm and into her back. 2027: Foreign body removal procedure preformed. There was no foreign body in the superficial aspect of her right thenar eminence. She will be placed on Keflex and referred to a follow up with Dr. Slater, her hand specialist. Return precautions discussed; patient is comfortable with this plan. - Data Points Medications Given: Discontinued Medications Cephalexin HCl (Keflex) 500 mg PO EDNOW ONE PRN Reason: Protocol Stop: 06/25/17 20:41 Last Admin: 06/25/17 20:46 Dose: 500 mg Departure - Departure Disposition: Home, Routine, Self-Care Clinical Impression: Right hand pain Foreign body of right hand Qualifiers: Encounter type: initial encounter Qualified Code(s): S60.551A - Superficial foreign body of right hand, initial encounter Condition: Good Additional Instructions: 1. Take Keflex as prescribed. 2. Keep your MRI appointment. 3. Follow up with Dr. Toledo for further outpatient evaluation. 4. Return to the ED if you experience numbness, weakness, fever or other worsening of your symptoms. Referrals: Rafaela Rosas MD [Primary Care Provider] - As per Instructions Jordy Slater MD [Medical Doctor] - As per Instructions Prescriptions: Cephalexin [Keflex (*)] 500 mg PO QID #40 cap Report Scribed for: Dolores Nesbitt Report Scribed by: Elmira Alexander Date of Report: 06/25/17 Time of Report: 20:06 Physician Review and Approval Statement: 06/25/17 20:06 Portions of this note were transcribed by a quality engineer medical device. I personally performed a history, physical exam, medical decision making, and confirmed accuracy of information the transcribed note.
[2017-06-25] MEDS ORDERED: CEPHALEXIN 500 MG CAP PO ONE (20:40)
[2017-06-25 20:51] VITALS: PULSE 82; O2SAT 98
[2017-06-25 20:52] VITALS: RESP 20
== END 2017-06-25 20:51 | disposition home or self-care (01) ==
PROC: 0JCJ0ZZ Extirpation of Matter from Right Hand Subcutaneous Tissue and Fascia, Open Approach (ICD-10-PCS; principal; 2017-06-25)
DX: S60.551A Superficial foreign body of right hand, initial encounter (principal); W45.8XXA Other foreign body or object entering through skin, initial encounter

== ENCOUNTER → 2017-10-20 | Outpatient (CLI) | payer OTHER | LOC: FIMAGING 16:00 | PROVIDERS: ATTEND Family Medicine | DX: Z12.31 Encounter for screening mammogram for malignant neoplasm of breast (principal) ==

== ENCOUNTER 2018-04-24 19:13 | Emergency (ER) | payer OTHER ==
[2018-04-24 19:36] VITALS: BP 109/77
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
== END 2018-04-24 20:06 | disposition home or self-care (01) ==
DX: M54.6 Pain in thoracic spine (principal); G89.29 Other chronic pain

== ENCOUNTER → 2018-10-30 | Outpatient (CLI) | payer OTHER | LOC: FIMAGING 09:08 | PROVIDERS: ATTEND Family Medicine | DX: Z12.31 Encounter for screening mammogram for malignant neoplasm of breast (principal) ==